=== PATIENT | female | born 1985 | race Caucasian/White ===

== ENCOUNTER 2018-12-14 12:48 | Emergency (ER) | payer MEDICAID, OTHER ==
[2018-12-14 13:51] LABS: ADD MAN DIFF? NO
[2018-12-14 14:03] LABS: WHITE BLOOD COUNT 11.4 10^3/ul (4.8-10.8)
[2018-12-14 14:03] LABS: BASOPHIL # 0.1 10^3/ul (0.0-0.1); BASOPHILS % 0.4 % (0.0-2.0); EOSINOPHILS % 0.1 % (0.0-7.0); HEMOGLOBIN 11.9 g/dl (12.0-16.0); LYMPHOCYTES # 1.2 10^3/ul (0.8-2.9); LYMPHOCYTES % 10.8 % (15.0-51.0); MEAN CORPUSCULAR HEMOGLOBIN 29.8 pg (29.0-33.0); MEAN CORPUSCULAR HGB CONC 33.1 g/dl (32.0-37.0); MEAN PLATELET VOLUME 8.4 fl (7.4-10.4); MONOCYTE # 0.6 10^3/ul (0.3-0.9); MONOCYTES % 5.6 % (0.0-11.0); NEUTROPHIL # 9.4 10^3/ul (1.6-7.5); NEUTROPHILS % 82.6 % (39.0-77.0); PLATELET COUNT 453 10^3/UL (140-415); RED CELL DISTRIBUTION WIDTH 12.1 % (11.5-14.5)
[2018-12-14] MEDS: SOD CHLORIDE 0.9% 1,000 ML IV (14:04)
[2018-12-14] MEDS: LORAZEPAM 2 MG INJ IV (14:04)
[2018-12-14] MEDS: KETOROLAC 30 MG INJ IV (14:14)
[2018-12-14 14:21] LABS: ALANINE AMINOTRANSFERASE 21 IU/L (13-69); ALBUMIN 4.7 g/dl (3.3-4.9); ALBUMIN/GLOBULIN RATIO 1.56; ALKALINE PHOSPHATASE 117 IU/L (42-121); ANION GAP 10 (5-13); ASPARTATE AMINO TRANSFERASE 29 IU/L (15-46); BILIRUBIN,INDIRECT 0.3 mg/dl (0-1.1); BILIRUBIN,TOTAL 0.3 mg/dl (0.2-1.3); BLOOD UREA NITROGEN 8 mg/dl (7-20); CALCIUM 9.6 mg/dl (8.4-10.2); CARBON DIOXIDE 26 mmol/L (21-31); CHLORIDE 104 mmol/L (97-110); CREATINE KINASE 63 IU/L (23-200); CREATININE 0.33 mg/dl (0.44-1.00); Estimated GFR > 60 mL/min (>60); GLUCOSE 97 mg/dl (70-220); LIPASE 20 U/L (23-300); POTASSIUM 3.7 mmol/L (3.5-5.1); PROTIME 12.3 Sec (11.9-14.9); SODIUM 140 mmol/L (135-144); TOTAL PROTEIN 7.7 g/dl (6.1-8.1)
[2018-12-14 14:22] LABS: PARTIAL THROMBOPLASTIN TIME 26.1 Sec (23.0-35.0)
[2018-12-14 14:32] LABS: B-TYPE NATRIURETIC PEPTIDE 35 PG/ML (0-125); CK INDEX 0.5; TROPONIN-I < 0.012 ng/ml (0.000-0.120)
[2018-12-14] MEDS: MECLIZINE 12.5 MG TAB PO (16:11)
== END 2018-12-14 16:51 | disposition home or self-care (01) ==
LOC: E/R 12:48
DX: M94.0 Chondrocostal junction syndrome [Tietze] (principal); F41.9 Anxiety disorder, unspecified
CPT/HCPCS: 80053; 81025; 82550; 82553; 83690; 83880; 84484; 85025; 85378; 85610; 85730; 93005; 96374; 96375; 99284-25